=== PATIENT | female | born 1985 | race Caucasian/White ===

== ENCOUNTER 2017-11-04 09:27 | Emergency (ER) | payer SELFPAY | END 2017-11-04 10:04 | disposition home or self-care (01) | LOC: BURERS 09:27 | DX: M54.5 Low back pain (principal); F17.210 Nicotine dependence, cigarettes, uncomplicated | CPT/HCPCS: 99283 ==

== ENCOUNTER 2017-12-23 08:02 | Emergency (ER) | payer SELFPAY | END 2017-12-23 08:22 | disposition home or self-care (01) | LOC: BURERS 08:02 | DX: K04.7 Periapical abscess without sinus (principal); F17.210 Nicotine dependence, cigarettes, uncomplicated | CPT/HCPCS: 99282 ==

== ENCOUNTER 2018-09-01 22:47 | Emergency (ER) | payer OTHER, SELFPAY ==
[2018-09-01] MEDS ORDERED: AMOXicillin 250 MG CAP ONE ×3 (22:56)
== END 2018-09-01 23:01 | disposition home or self-care (01) ==
LOC: BURERS 22:47
DX: K04.7 Periapical abscess without sinus (principal); F17.210 Nicotine dependence, cigarettes, uncomplicated
CPT/HCPCS: 99283

== ENCOUNTER 2019-02-01 19:29 | Emergency (ER) | payer SELFPAY ==
[2019-02-01] MEDS ORDERED: AMOXicillin 250 MG CAP ONE (20:05)
[2019-02-01] MEDS ORDERED: Ketorolac Tromethamine 60 MG/2 ML VIAL ONE (20:05)
== END 2019-02-01 20:11 | disposition home or self-care (01) ==
LOC: BURERS 19:29
DX: M26.602 Left temporomandibular joint disorder, unspecified (principal); K03.81 Cracked tooth; F17.210 Nicotine dependence, cigarettes, uncomplicated
CPT/HCPCS: 93005; 96372; J1885

== ENCOUNTER 2020-05-20 08:10 | Emergency (ER) | payer SELFPAY ==
[2020-05-20] MEDS ORDERED: Cyclobenzaprine 10 MG TAB ONE (08:34)
== END 2020-05-20 08:38 | disposition home or self-care (01) ==
LOC: BURERS 08:10
DX: M43.6 Torticollis (principal); F17.210 Nicotine dependence, cigarettes, uncomplicated; Z71.6 Tobacco abuse counseling
CPT/HCPCS: 99406

== ENCOUNTER 2021-06-17 13:40 | Emergency (ER) | payer SELFPAY ==
[2021-06-17] MEDS ORDERED: Fentanyl 100 MCG/2 ML VIAL ONE (14:01)
[2021-06-17] MEDS ORDERED: Aspirin Chewable 81 MG TAB ONE (14:01)
== END 2021-06-17 14:30 | disposition left against medical advice (07) ==
LOC: BURERS 13:40
DX: R07.9 Chest pain, unspecified (principal); F17.210 Nicotine dependence, cigarettes, uncomplicated
CPT/HCPCS: 71045; 93005; 94760; 96374; J3010

== ENCOUNTER 2025-02-03 12:49 | Emergency (ER) | payer OTHER, SELFPAY | END 2025-02-03 14:40 | disposition home or self-care (01) | LOC: BURERS 12:49 | DX: M77.31 Calcaneal spur, right foot (principal); M76.62 Achilles tendinitis, left leg; M79.671 Pain in right foot; F17.210 Nicotine dependence, cigarettes, uncomplicated ==